=== PATIENT | male | born 1970 | race Caucasian/White ===

== ENCOUNTER 2019-12-29 22:39 | Emergency (ER) | payer SELFPAY ==
[2019-12-29 22:51] VITALS: BMI 18.3
[2019-12-29] MEDS ORDERED: ACETAMINOPHEN 325 MG TABLET (FP) PO ONE (23:51)
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
[2019-12-30 01:47] VITALS: BP 133/80; PULSE 108
[2019-12-30 01:48] VITALS: TEMP 98.4
== END 2019-12-30 02:50 | disposition home or self-care (01) ==
LOC: JER 22:39
DX: S63.502A Unspecified sprain of left wrist, initial encounter (principal); S80.01XA Contusion of right knee, initial encounter; E11.65 Type 2 diabetes mellitus with hyperglycemia; V18.0XXA Pedal cycle driver injured in noncollision transport accident in nontraffic accident, initial encounter
CPT/HCPCS: 73070-TC-LT-FY; 73090-TC-LT-FY; 73110-TC-LT-FY; 73130-TC-LT-FY; 73562-TC-RT-FY; 82962; 99284-25